=== PATIENT | female | born 1975 | race Caucasian/White ===

== ENCOUNTER 2023-04-06 15:59 | Emergency (ER) | payer BC, SELFPAY ==
[2023-04-06 16:04] VITALS: BP 136/84; PULSE 97; RESP 18; TEMP 36.3; O2SAT 64; BMI 36.5
[2023-04-06] MEDS: DOCUSATE SODIUM/BENZOCAINE 5 ML ENEMA PR (18:06)
--- NOTE | 2023-04-06 18:40 | CRLHL7_ITS ---
For Patients: As a result of the Century Cures Act, medical imaging exams and procedure reports are released immediately into your electronic medical record. You may view this report before your referring provider. If you have questions, please contact your health care provider. Indication: Constipation. Technique: Abdomen 3 view. Comparison: None. Findings/Impression: Bowel: Bowel pattern is normal. Moderate colonic stool burden. Soft tissues: No sign of free air. No sign of soft tissue mass. No suspicious calcifications. Bones: Unremarkable for age. Dictated by Jerald Chase MD @ 04/06/2023 8:06:32 PM (Electronically Signed)
--- NOTE | 2023-04-06 20:17 | ED_ITS ---
HPI - General Adult General Chief complaint: Constipation Stated complaint: Constipation Time Seen by Provider: 04/06/23 17:15 Source: patient Mode of arrival: ambulatory Limitations: no limitations History of Present Illness HPI narrative: Patient is a 47-year-old woman who is 1 month status post gastric sleeve. She presents saying that she has been having trouble with constipation, she had been taking MiraLax but then thought she was taking too much so she backed off to every other day. Yesterday she had small hard stools, so she became panicky that she was getting constipated. She has been taking Dulcolax, extra MiraLax, as well as something else in terms of a laxative. Today she says she has strong are urge to have a bowel movement, she says that there is something right there that she needs to push out that she sits and she can not push it out. She otherwise does not have abdominal pain, fevers, vomiting, or other concerns. She has been feeling well, she does note that it has been difficult to get fiber in because of her dietary restrictions. Related Data Allergies Allergy/AdvReac Type Severity Reaction Status Date / Time hydromorphone [From Dilaudid] AdvReac Severe Verified 04/06/23 16:09 prochlorperazine AdvReac Severe Verified 04/06/23 16:09 [From Compazine] adhesive AdvReac Intermediate Rash Verified 04/06/23 16:09 Exam Narrative: Exam Narrative: Vital signs reviewed In general, alert, nontoxic woman. Heart: Regular rate and rhythm. Lungs: Clear. Abdomen: Soft nontender nondistended. Rectal: Done after her 1st enema, empty vault, no impacted stool. Const: Vital Signs, click to edit/add: Vital Signs - 24 hr 04/06/23 16:04 Temperature 97.4 F L Pulse Rate [Pulse Oximeter] 97 Respiratory Rate 18 Blood Pressure [Ri ght Upper Arm] 136/84 Pulse Oximetry 64 L Oxygen Delivery Me thod Room Air Documenting provider has reviewed patient's vital signs: yes Course Course ED Course: Initially, she had an Enemeez, went to the bathroom and thought she maybe had a small result. We talked a little bit more, she said again that she just thought there was this large stool that she could not push out. At that point I did a rectal exam to see if I was able to break anything up, but she actually did not have any stool in the rectal vault at all. I did an abdominal x-ray, she does have some stool in the colon, some of which looks like it is probably more hardened, but it also looks like it is fairly high up in probably will not be terribly responsive to an enema. I think she is probably having some tenesmus and cramping related to taking a lot of things to stimulate her bowels. I discussed with her I think her best bet is probably to go on a good dose of daily MiraLax, make sure that she is hydrating well, and to just feel reassured that she is doing okay in terms of constipation. I think she will get back to regular regimen just doing this. She has the meeting with a wildlife refuge manager in the upcoming week, they can talk about how to get adequate fiber. I would back off on any kind of stimulant laxatives. She is comfortable with that plan. Right now I do not think there is anything to suggest a surgical complication or need for lab or imaging beyond what we have done so far. If she develops more abdominal pain, fevers, vomiting etcetera, return for repeat evaluation. Vital Signs Vital signs: Initial Vital Signs Temperature 97.4 F L 04/06/23 16:04 Temperature Source Temporal Artery Scan 04/06/23 16:04 Pulse Rate 97 04/06/23 16:04 Respiratory Rate 18 04/06/23 16:04 Blood Pressure 136/84 04/06/23 16:04 Blood Pressure Mean 101 04/06/23 16:04 Blood Pressure Position Sitting 04/06/23 16:04 Pulse Oximetry 64 L 04/06/23 16:04 Oxygen Delivery Method Room Air 04/06/23 16:04 Vital Signs Temperature 97.4 F L 04/06/23 16:04 Pulse Rate 97 04/06/23 16:04 Respiratory Rate 18 04/06/23 16:04 Blood Pressure 136/84 04/06/23 16:04 Pulse Oximetry 64 L 04/06/23 16:04 Oxygen Delivery Method Room Air 04/06/23 16:04 Temperature 97.4 F L 04/06/23 16:04 Pulse Rate 97 04/06/23 16:04 Respiratory Rate 18 04/06/23 16:04 Blood Pressure 136/84 04/06/23 16:04 Pulse Oximetry 64 L 04/06/23 16:04 Oxygen Delivery Method Room Air 04/06/23 16:04 Discharge Plan Discharge Clinical Impression: Constipation Patient Disposition: Home, Self-Care Condition: Improved Instructions: Constipation (DC) Additional Instructions: Daily MiraLax, 1 capful daily for now and then adjust as needed. Surgical follow-up and nutritional follow-up as planned. For significant abdominal pain, vomiting, fevers, bloody stools or other acute changes, return for re- evaluation. Follow Up/Referrals: Christophe Luna MD [Primary Care Provider] - Stand Alone [facility]: [facility] Inst[facility]
== END 2023-04-06 19:56 | disposition home or self-care (01) ==
PROVIDERS: Emergency Provider Emergency Medicine; PCP Family Medicine
DX: K59.00 Constipation, unspecified (principal)
CPT/HCPCS: 74019; 99283; 99284; A9270